=== PATIENT | female | born 1965 | race American Indian/Alaskan Native ===

== ENCOUNTER 2019-10-02 08:24 | Outpatient (CLI) | payer OTHER ==
--- NOTE | 2019-10-02 11:07 | Mammography Report ---
DIGITAL SCREENING MAMMOGRAM WITH CAD, 10/02/2019 INDICATION: Routine screening mammography. TECHNIQUE: Digital bilateral 2D mammography was obtained in the craniocaudal and mediolateral obliq ue projections. This examination was interpreted with the benefit of Computer-Aided Detection analysi s. COMPARISON: 11/15/2015 FINDINGS: Breast Density: The breasts are heterogeneously dense, which may obscure small masses. Bilateral asymmetries require additional imaging. No architectural distortion or suspicious calcifica tions. IMPRESSION: Bilateral asymmetries requiring additional imaging. Recommend recall for bilateral spot c ompression views and bilateral breast ultrasound if needed. Follow up recommendation: Special View: Spot Category 0: Incomplete. Needs additional imaging evaluation and/or prior mammograms for comparison. A "normal" or negative report should not discourage follow up or biopsy of a clinically significant f inding. A written summary of these findings will be mailed to the patient. The patient will be entered into a mammography reporting system which will generate a reminder letter for the patient's next appointmen t at the appropriate interval. The [employer] recommends yearly mammograms starting at age 40 and continuing as l bruno as a woman is in good health. Breast MRI is recommended for women with an approximate 20-25% or greater lifetime risk of breast cancer, including women with a strong family history of breast or ova doretha cancer or who have been treated for Hodgkin's disease. Signer Name: Aaron Schwartz MD Signed: 10/02/2019 11:03 AM Workstation Name: [id number]
== END 2019-10-02 08:25 | disposition home or self-care (01) ==
LOC: MAMMO 08:24
DX: Z12.31 Encounter for screening mammogram for malignant neoplasm of breast (principal)
CPT/HCPCS: 77067

== ENCOUNTER 2019-11-07 08:17 | Outpatient (CLI) | payer OTHER ==
--- NOTE | 2019-11-07 09:11 | Mammography Report ---
DIGITAL DIAGNOSTIC MAMMOGRAM WITH CAD, 11/07/2019 INDICATION: Recall for bilateral asymmetries identified at screening. ABN MAMMO TECHNIQUE: Digital bilateral mammographic imaging was performed. Spot compression and magnification views were obtained. This examination was interpreted with the benefit of Computer-aided Detection analysis. COMPARISON: 10/02/2019 FINDINGS: Breast Density: The breasts are heterogeneously dense, which may obscure small masses. Bilateral additional mammographic views were performed and are negative. Satisfactory effacement of b ilateral asymmetries. A few scattered right calcifications with benign morphology. IMPRESSION: No mammographic evidence of malignancy. Follow up recommendation: Routine yearly BI-RADS Category 2: Benign. A "normal" or negative report should not discourage follow up or biopsy of a clinically significant f inding. A written summary of these findings will be mailed to the patient. The patient will be entered into a mammography reporting system which will generate a reminder letter for the patient's next appointmen t at the appropriate interval. According to the [employer], yearly mammograms are recommended starting at age 40 and continuing as long as a woman is in good health. Breast MRI is recommended for women with an cyndi roximately 20-25% or greater lifetime risk of breast cancer, including women with a strong family his tory of breast or ovarian cancer and women who have been treated for Hodgkin's disease. Signer Name: Aaron Schwartz MD Signed: 11/07/2019 9:07 AM Workstation Name: [id number]
== END 2019-11-07 08:18 | disposition home or self-care (01) ==
LOC: MAMMO 08:17
DX: R92.2 Inconclusive mammogram (principal)
CPT/HCPCS: 77066

== ENCOUNTER 2022-05-25 15:22 | Emergency (ER) | payer OTHER ==
[2022-05-25 15:39] VITALS: BP 140/90
[2022-05-25 16:36] LABS: Hematocrit 38.7 % (30.3-42.9); Hemoglobin 12.7 gm/dl (10.1-14.3); Mean Corpuscular HGB Conc 33 % (30-34); Mean Corpuscular Volume 82 fl (79-97); Platelet Count 313 K/mm3 (140-440); Red Blood Count 4.75 M/mm3 (3.65-5.03); Red Cell Distribution Width 15.8 % (13.2-15.2)
[2022-05-25 16:52] LABS: Alanine Aminotransferase 14 units/L (7-56); BUN/Creatinine Ratio 28; Blood Urea Nitrogen 17 mg/dL (7-17); Calcium 10.4 mg/dL (8.4-10.2); Hemolysis Index 5
--- NOTE | 2022-05-25 17:58 | Emergency Department Report ---
ED Abdominal Pain HPI - General Chief Complaint: Urogenital-Female Stated Complaint: KIDNEY PAIN Time Seen by Provider: 05/25/22 17:53 Source: patient, EMS Mode of arrival: Stretcher Limitations: Physical Limitation - History of Present Illness Initial Comments: 57-year-old -[place] female complaining of having back pain patient states she has some kind of catheter but it was removed now she still having back pain. Denies having fever or chills. -: Gradual, week(s) Radiation: none Migration to: no migration Severity scale (0 -10): 4 Quality: aching, sharp Consistency: intermittent Improves With: nothing Worsens With: nothing Associated Symptoms: denies other symptoms - Related Data Home Medications Medication Instructions Recorded Confirmed Last Taken Pantoprazole [Protonix TAB] 40 mg PO QDAY 02/19/22 02/20/22 Unknown methocarbamoL [Methocarbamol] 1 tab PO Q6HR PRN 02/19/22 02/20/22 02/18/22 ALBUTEROL NEB's [Proventil 0.083% 2.5 mg IH TID PRN 02/20/22 02/20/22 Unknown NEBS] Ondansetron [Zofran ODT TAB] 4 mg PO Q6HR PRN 02/20/22 02/20/22 Unknown Pravastatin [Pravachol] 1 tab PO DAILY 02/20/22 02/20/22 Unknown Previous Rx's Medication Instructions Recorded Last Taken Type Albuterol Mdi (or & Nicu Only) 2 puff IH QID PRN #1 02/26/22 Unknown Rx [ProAir HFA Inhaler] Ascorbic Acid/Elderberry Fruit 1 each PO QDAY #30 02/26/22 Unknown Rx [Elderberry-Vit C 50-100 mg Chw] Ergocalciferol [Vitamin D2] 1 cap PO QWEEK #4 cap 02/26/22 Unknown Rx Levothyroxine [Synthroid] 88 mcg PO QAM #30 02/26/22 Unknown Rx Magnesium Hydroxide [Milk of 30 ml PO QDAY PRN 30 Days #1 bottle 02/26/22 Unknown Rx Magnesia] Meclizine [Antivert] 25 mg PO TID PRN #20 02/26/22 Unknown Rx Metoprolol [Lopressor TAB] 12.5 mg PO BID #60 tablet 02/26/22 Unknown Rx Midodrine [Proamatine] 10 mg PO TID@0800,1200,1600 #30 02/26/22 Unknown Rx bisacodyL [Dulcolax suppos] 10 mg CO QDAY PRN #30 supp.rect 02/26/22 Unknown Rx polyethylene glycoL 3350 [Miralax 17 gm PO QDAY #30 powd.pack 02/26/22 Unknown Rx 3350] traMADoL [Ultram 50 MG tab] 50 mg PO Q6H PRN #20 tablet 02/26/22 Unknown Rx Ciprofloxacin HCl 500 mg PO BID #14 05/25/22 Unknown Rx oxyCODONE /ACETAMINOPHEN [Percocet 1 tab PO Q6HR PRN #15 tablet 05/25/22 Unknown Rx 5/325] Allergies Allergy/AdvReac Type Severity Reaction Status Date / Time iodine Allergy Anaphylaxis Verified 05/25/22 15:39 heparin AdvReac Anaphylaxis Verified 05/25/22 15:39 ibuprofen AdvReac Anaphylaxis Verified 05/25/22 15:39 shellfish derived AdvReac Anaphylaxis Verified 05/25/22 15:39 ED Review of Systems ROS: Stated complaint: KIDNEY PAIN Other details as noted in HPI Constitutional: denies: chills, fever Eyes: denies: eye pain, eye discharge, vision change ENT: denies: ear pain, throat pain Respiratory: denies: cough, shortness of breath, wheezing Cardiovascular: denies: chest pain, palpitations Endocrine: no symptoms reported Gastrointestinal: denies: abdominal pain, nausea, diarrhea Genitourinary: denies: urgency, dysuria, discharge Musculoskeletal: back pain. denies: joint swelling, arthralgia Skin: denies: rash, lesions Neurological: denies: headache, weakness, paresthesias Psychiatric: denies: anxiety, depression Hematological/Lymphatic: denies: easy bleeding, easy bruising ED Past Medical Hx - Social History Smoking Status: Never Smoker - Medications Home Medications: Home Medications Medication Instructions Recorded Confirmed Last Taken Type Pantoprazole [Protonix TAB] 40 mg PO QDAY 02/19/22 02/20/22 Unknown History methocarbamoL [Methocarbamol] 1 tab PO Q6HR PRN 02/19/22 02/20/22 02/18/22 History ALBUTEROL NEB's [Proventil 0.083% 2.5 mg IH TID PRN 02/20/22 02/20/22 Unknown History NEBS] Ondansetron [Zofran ODT TAB] 4 mg PO Q6HR PRN 02/20/22 02/20/22 Unknown History Pravastatin [Pravachol] 1 tab PO DAILY 02/20/22 02/20/22 Unknown History Albuterol Mdi (or & Nicu Only) 2 puff IH QID PRN #1 02/26/22 Unknown Rx [ProAir HFA Inhaler] Ascorbic Acid/Elderberry Fruit 1 each PO QDAY #30 02/26/22 Unknown Rx [Elderberry-Vit C 50-100 mg Chw] Ergocalciferol [Vitamin D2] 1 cap PO QWEEK #4 cap 02/26/22 Unknown Rx Levothyroxine [Synthroid] 88 mcg PO QAM #30 02/26/22 Unknown Rx Magnesium Hydroxide [Milk of 30 ml PO QDAY PRN 30 Days #1 bottle 02/26/22 Unknown Rx Magnesia] Meclizine [Antivert] 25 mg PO TID PRN #20 02/26/22 Unknown Rx Metoprolol [Lopressor TAB] 12.5 mg PO BID #60 tablet 02/26/22 Unknown Rx Midodrine [Proamatine] 10 mg PO TID@0800,1200,1600 #30 02/26/22 Unknown Rx bisacodyL [Dulcolax suppos] 10 mg CO QDAY PRN #30 supp.rect 02/26/22 Unknown Rx polyethylene glycoL 3350 [Miralax 17 gm PO QDAY #30 powd.pack 02/26/22 Unknown Rx 3350] traMADoL [Ultram 50 MG tab] 50 mg PO Q6H PRN #20 tablet 02/26/22 Unknown Rx Ciprofloxacin HCl 500 mg PO BID #14 05/25/22 Unknown Rx oxyCODONE /ACETAMINOPHEN [Percocet 1 tab PO Q6HR PRN #15 tablet 05/25/22 Unknown Rx 5/325] ED Physical Exam - General Limitations: Physical Limitation General appearance: alert, in no apparent distress - Head Head exam: Present: atraumatic, normocephalic - Eye Eye exam: Present: normal appearance - ENT ENT exam: Present: mucous membranes moist - Neck Neck exam: Present: normal inspection - Respiratory Respiratory exam: Present: normal lung sounds bilaterally. Absent: respiratory distress - Cardiovascular Cardiovascular Exam: Present: regular rate, normal rhythm. Absent: systolic murmur, diastolic murmur, rubs, gallop - GI/Abdominal GI/Abdominal exam: Present: soft, normal bowel sounds. Absent: distended, tenderness, guarding - Extremities Exam Extremities exam: Present: normal inspection, full ROM. Absent: tenderness - Back Exam Back exam: Present: normal inspection, full ROM - Neurological Exam Neurological exam: Present: alert, oriented X3, CN II-XII intact, normal gait - Psychiatric Psychiatric exam: Present: normal affect, normal mood - Skin Skin exam: Present: warm, dry, intact, normal color. Absent: rash ED Course Vital Signs 05/25/22 15:22 Temperature 97.6 F Pulse Rate 90 Respiratory 14 Rate Blood Pressure 140/90 [Left] O2 Sat by Pulse 98 Oximetry ED Medical Decision Making - Lab Data Result diagrams: 05/25/22 16:06 05/25/22 16:06 Critical care attestation.: If time is entered above; I have spent that time in minutes in the direct care of this critically ill patient, excluding procedure time. ED Disposition Clinical Impression: Back pain Disposition: 01 HOME / SELF CARE / HOMELESS Is pt being admited?: No Does the pt Need Aspirin: No Condition: Stable Instructions: Radicular Pain, Acute Back Pain, Adult Prescriptions: Ciprofloxacin HCl 500 mg PO BID #14 oxyCODONE /ACETAMINOPHEN [Percocet 5/325] 1 tab PO Q6HR PRN #15 tablet PRN Reason: Pain Referrals: JULIANNA LIZAMA MD [Primary Care Provider] - 3-5 Days
--- NOTE | 2022-05-25 18:50 | Cat Scan Report ---
CT ABDOMEN AND PELVIS WITHOUT CONTRAST INDICATION / CLINICAL INFORMATION: back pain . TECHNIQUE: Axial CT images were obtained through the abdomen and pelvis without IV contrast. All CT scans at this location are performed using CT dose reduction for ALARA by means of automated exposure control. COMPARISON: None available. FINDINGS: LOWER CHEST: There is peripheral interstitial disease in the lung bases right greater than left. Ther e is bronchiectasis in the lung bases. LIVER: No significant abnormality. GALLBLADDER: No significant abnormality. BILE DUCTS: No significant abnormality. PANCREAS: No significant abnormality. SPLEEN: No significant abnormality. ADRENALS: No significant abnormality. RIGHT KIDNEY / URETER: There is a small calyceal stone in the upper pole.. There is no hydronephrosis . There are no ureteral calculi. LEFT KIDNEY / URETER: No significant abnormality. STOMACH / SMALL BOWEL: No significant abnormality. COLON: No significant abnormality. APPENDIX: No significant abnormality. PERITONEUM: No free fluid. No free air. No fluid collection. LYMPH NODES: No significant adenopathy. AORTA / ARTERIES: No significant abnormality. IVC / VEINS: No significant abnormality. URINARY BLADDER: No significant abnormality. REPRODUCTIVE ORGANS: No significant abnormality. ADDITIONAL FINDINGS: There are multiple phleboliths in the pelvis. SKELETAL SYSTEM: No acute abnormality. There is mild discogenic degenerative change at L4-5 with prob able disc protrusion.. IMPRESSION: 1. There is a small nonobstructing calyceal stone in the right kidney. There is no hydronephrosis. Th ere are no ureteral calculi. 2. There is no obstruction, inflammation, or free air. 3. There is discogenic degenerative change at L4-5 with probable posterior disc protrusion. Signer Name: Noe Hernandez MD Signed: 05/25/2022 6:46 PM Workstation Name: [id number]
== END 2022-05-25 20:53 | disposition home or self-care (01) ==
LOC: ED 15:22
DX: M54.9 Dorsalgia, unspecified (principal); Z88.6 Allergy status to analgesic agent; Z91.013 Allergy to seafood; Z79.899 Other long term (current) drug therapy
CPT/HCPCS: 36415; 74176; 80053; 85027; 99284